=== PATIENT | male | born 1960 | race Caucasian/White ===

== ENCOUNTER 2018-01-20 08:49 | Outpatient (CLI) | payer OTHER ==
[2018-01-20 10:09] LABS: BASOPHILS # (AUTO) 0.1 X10'3 (0-0.2); BASOPHILS % (AUTO) 0.8 % (0-1); EOSINOPHILS # (AUTO) 0.7 X10'3 (0-0.9); EOSINOPHILS % (AUTO) 6.5 % (0-6); LYMPHOCYTES # (AUTO) 2.1 X10'3 (1.1-4.8); LYMPHOCYTES % (AUTO) 20.5 % (21-51); MEAN CORPUSCULAR HEMOGLOBIN 31.5 PG (27.0-31.0); MEAN CORPUSCULAR HGB CONC 34.2 % (33.0-36.5); MEAN CORPUSCULAR VOLUME 92.3 FL (78-98); MEAN PLATELET VOLUME 7.4 FL (7.4-10.4); MONOCYTES # (AUTO) 0.6 X10'3 (0-0.9); MONOCYTES % (AUTO) 5.5 % (2-12); NEUTROPHILS # (AUTO) 6.7 X10'3 (1.8-7.7); NEUTROPHILS % (AUTO) 66.7 % (42-75); PRE OP HEMATOCRIT 39.4 % (42.0-52.0); PRE OP HEMOGLOBIN 13.5 g/dL (14.0-17.9); PRE OP PLATELET COUNT 355 X10'3 (140-440); RED BLOOD COUNT 4.27 X10'6 (4.70-6.10); RED CELL DISTRIBUTION WIDTH 12.9 % (11.5-14.5)
[2018-01-20] MEDS ORDERED: AMLO10TA13 (10:23)
[2018-01-20] MEDS ORDERED: ATOR10TA70 (10:23)
[2018-01-20] MEDS ORDERED: LISI-600 (10:23)
[2018-01-20] MEDS ORDERED: METH750T3 (10:23)
[2018-01-20] MEDS ORDERED: HYDR-3972 (10:23)
[2018-01-20] MEDS ORDERED: CARI250T PO (10:23)
[2018-01-20] MEDS ORDERED: OXYC40TA48 (10:23)
[2018-01-20 10:26] LABS: ALBUMIN 4.1 G/DL (3.4-5.0); ALBUMIN/GLOBULIN RATIO 1.2 (1.1-1.5); ALKALINE PHOSPHATASE 55 IU/L (46-116); BLOOD UREA NITROGEN 16 MG/DL (7-18); BUN/CREATININE RATIO 17.2 (5.4-32.0); CALCIUM 9.3 MG/DL (8.5-10.1); CHLORIDE 103 MMOL/L (99-107); CREATININE 0.93 MG/DL (0.60-1.10); PRE OP ALT 28 U/L (30-65); PRE OP ANION GAP 7 (8-16); PRE OP AST 19 U/L (10-37); PRE OP BILIRUB, TOTAL 0.3 MG/DL (0.0-1.0); PRE OP GLUCOSE 105 MG/DL (70-104); PRE OP POTASSIUM 4.7 MMOL/L (3.4-5.1); PRE OP SODIUM 141 MMOL/L (135-145); TOTAL CARBON DIOXIDE 30.8 MMOL/L (24-32); TOTAL PROTEIN 7.5 G/DL (6.4-8.2); eGFR 83 ML/MIN
== END 2018-01-20 11:35 | disposition home or self-care (01) ==
LOC: PRE-OP 08:49 → EDSTATUS 08:50 → PRE-OP 11:35 → EDSTATUS 01-22 08:50
PROVIDERS: ATTEND Orthopaedic Surgery
DX: Z01.818 Encounter for other preprocedural examination (principal); M75.122 Complete rotator cuff tear or rupture of left shoulder, not specified as traumatic; M75.82 Other shoulder lesions, left shoulder; M25.512 Pain in left shoulder; Y93.H3 Activity, building and construction
CPT/HCPCS: 36415; 80053; 85025; 87070

== ENCOUNTER 2018-03-09 12:30 | Inpatient (IN) | payer OTHER ==
[2018-03-08 15:11] LABS: ALBUMIN 3.9 G/DL (3.4-5.0); ALBUMIN/GLOBULIN RATIO 1.1 (1.1-1.5); ALKALINE PHOSPHATASE 66 IU/L (46-116); BLOOD UREA NITROGEN 24 MG/DL (7-18); BUN/CREATININE RATIO 23.1 (5.4-32.0); CALCIUM 8.5 MG/DL (8.5-10.1); CHLORIDE 104 MMOL/L (99-107); CREATININE 1.04 MG/DL (0.60-1.10); PRE OP ALT 27 U/L (30-65); PRE OP ANION GAP 10 (8-16); PRE OP AST 21 U/L (10-37); PRE OP BILIRUB, TOTAL 0.1 MG/DL (0.0-1.0); PRE OP GLUCOSE 162 MG/DL (70-104); PRE OP SODIUM 140 MMOL/L (135-145); TOTAL PROTEIN 7.4 G/DL (6.4-8.2); eGFR 73 ML/MIN
[~2018-03-09] VITALS: Ht 175.3 cm; Wt 68.0 kg
[~2018-03-09 12:30] MED LIST: AMLO10TA13; ATOR10TA70; CARI250T PO; ESZO3TAB32 PO; HYDR-3972; IBUP-1985 PO; METH750T3; OXYC40TA48; TRAZ300T2 PO
[2018-03-11] VITALS (19 sets, daily range): BP systolic 112–178; BP diastolic 67–98
[2018-03-11] MEDS ORDERED: ringers solution, lacted 1,000 ML IV SCH ×3 (05:00→13:14)
[2018-03-11] MEDS ORDERED: tranexamic acid inj. 680 MG in normal saline 100ml IV soln 93.2 ML IV ONE ×4 (05:00)
[2018-03-11] MEDS ORDERED: ceFAZolin 2gm in dextrose, iso 100 ML IV ONE (05:00)
[2018-03-11] MEDS ORDERED: famotidine 20mg tablet PO ONE (05:30)
[2018-03-11] MEDS ORDERED: VANCOMYCIN INJ 1000 MG in NORMAL SALINE 250ml IV.SOLN IV ONE (05:30)
[2018-03-11] MEDS ORDERED: ondansetron/PF 4mg/2ml inj IV PRN ×3 (11:30→18:45)
[2018-03-11] MEDS ORDERED: morphine 4 MG/ML inj SYRINge IV PRN ×4 (11:30→13:15)
[2018-03-11] MEDS ORDERED: meperidine/PF 25mg/ml syringe IV PRN ×6 (11:30→13:15)
[2018-03-11] MEDS ORDERED: proCHLORperazine 10 MG/2 ml inj IV PRN ×2 (11:30→13:15)
[2018-03-11] MEDS ORDERED: ketorolac trometh. 30mg/ml inj. ONE (13:30)
[2018-03-11] MEDS ORDERED: vancomycin 1,000mg inj ONE (13:30)
[2018-03-11] MEDS ORDERED: ROPIVAcaine 0.5% (5mg/ml) 30ml vial ONE ×2 (13:30→15:24)
[2018-03-11 13:44] LABS: BASOPHILS % (AUTO) 0.6 % (0-1); EOSINOPHILS # (AUTO) 0.2 X10'3 (0-0.9); EOSINOPHILS % (AUTO) 2.3 % (0-6); HEMATOCRIT 37.1 % (42.0-52.0); HEMOGLOBIN 12.6 g/dl (14.0-17.9); LYMPHOCYTES # (AUTO) 2.4 X10'3 (1.1-4.8); LYMPHOCYTES % (AUTO) 31.7 % (21-51); MEAN CORPUSCULAR HEMOGLOBIN 31.6 PG (27.0-31.0); MEAN CORPUSCULAR HGB CONC 33.8 % (33.0-36.5); MEAN CORPUSCULAR VOLUME 93.3 FL (78-98); MEAN PLATELET VOLUME 7.4 FL (7.4-10.4); MONOCYTES # (AUTO) 0.5 X10'3 (0-0.9); MONOCYTES % (AUTO) 6.8 % (2-12); NEUTROPHILS # (AUTO) 4.5 X10'3 (1.8-7.7); NEUTROPHILS % (AUTO) 58.6 % (42-75); PLATELET COUNT 286 X10'3 (140-440); RED BLOOD COUNT 3.97 X10'6 (4.70-6.10); RED CELL DISTRIBUTION WIDTH 14.3 % (11.5-14.5); WHITE BLOOD COUNT 7.6 X10'3 (4.5-11.0)
[2018-03-11] MEDS: tranexamic acid inj. 680 MG in normal saline 100ml IV soln 93.2 ML IV SCH ×2 (13:50→14:50)
[2018-03-11] MEDS ORDERED: diazepam 5mg tablet PO ONE (14:20)
[2018-03-11] MEDS ORDERED: fentaNYL/PF 50MCG/1 ML 2ML syringe ONE (15:21)
[2018-03-11] MEDS ORDERED: MIDAZolam 5mg/5ml vial ONE (15:21)
[2018-03-11] MEDS ORDERED: cloNIDine hcl/PF 100mcg/ml inj ONE (15:23)
[2018-03-11] MEDS ORDERED: LIDOcaine 1%/PF 5ML 10 MG/ML VIAL ONE (15:26)
[2018-03-11] MEDS ORDERED: propofol inj 20 ML IV ONE (15:26)
[2018-03-11] MEDS ORDERED: sevoflurane 250ml liquid IH ONE (16:22)
[2018-03-11] MEDS ORDERED: dexamethasone sod phosphate 10mg/ml inj ONE (16:22)
[2018-03-11] MEDS ORDERED: ondansetron/PF 4mg/2ml inj ONE (16:22)
[2018-03-11] MEDS ORDERED: HYDROmorphone inj. 0.5 MG/0.5 ML DISP.SYRIN IV PRN ×2 (18:45)
[2018-03-11] MEDS ORDERED: CARISOPRODOL 350 MG PO PRN (18:45)
[2018-03-11] MEDS ORDERED: magnesium hydroxide 30ml (MOM) UD suspension PO PRN (18:45)
[2018-03-11] MEDS ORDERED: acetaminophen 325mg tablet PO PRN (18:45)
[2018-03-11] MEDS ORDERED: non-formulary drug (Trazodone HCl 1 TAB) PO PRN (18:45)
[2018-03-11] MEDS ORDERED: bisacodyl 10mg suppository rectal RC PRN (18:45)
[2018-03-11] MEDS ORDERED: oxyCODONE IR 5mg (immed. release) tablet PO PRN (18:45)
[2018-03-11] MEDS ORDERED: zolpidem 5mg tablet PO PRN (18:45)
[2018-03-11] MEDS ORDERED: diphenhydrAMINE 25mg capsule PO PRN ×2 (18:45)
[2018-03-11] MEDS ORDERED: traZODone 150mg tablet PO PRN (19:10)
[2018-03-11] MEDS ORDERED: vancomycin/NS 1 GM ADD-VANTAGE 250 ML IV SCH (20:00)
[2018-03-11] MEDS ORDERED: sennosides 8.6mg tablet PO SCH (21:00)
[2018-03-11] MEDS: oxyCODONE SR 40mg (sust release) tab PO SCH (21:00)
[2018-03-11] MEDS: ketorolac tromethamine 15mg/ml inj. IV SCH (21:00)
[2018-03-11] MEDS: acetaminophen 325mg tablet PO SCH (21:00)
[2018-03-11] MEDS ORDERED: METHOCARBAMOL 750 MG SCH (21:00)
[2018-03-11] MEDS: gabapentin 300mg capsule PO SCH (21:01)
[2018-03-11] MEDS: potassium cl 20mEq in 1/2 NS 1,000 ML IV SCH (21:14)
[2018-03-11] MEDS ORDERED: tranexamic acid inj. 680 MG in normal saline 100ml IV soln 100 ML IV ONE (21:45)
[2018-03-11] MEDS: ceFAZolin 1GM/D5W- ADD-VANTAGE 50 ML IV SCH (23:58)
[2018-03-12] MEDS: acetaminophen 325mg tablet PO SCH ×3 (01:41→14:19)
[2018-03-12] MEDS: ketorolac tromethamine 15mg/ml inj. IV SCH ×3 (01:42→14:19)
[2018-03-12 02:00] VITALS: BP 114/78
[2018-03-12] MEDS: potassium cl 20mEq in 1/2 NS 1,000 ML IV SCH ×2 (02:42→10:42)
[2018-03-12] MEDS: oxyCODONE IR 5mg (immed. release) tablet PO PRN ×2 (05:16→10:58)
[2018-03-12 06:57] LABS: BASOPHILS % (AUTO) 0 % (0-1); EOSINOPHILS % (AUTO) 0 % (0-6); HEMOGLOBIN 12.1 g/dl (14.0-17.9); LYMPHOCYTES % (AUTO) 5.6 % (21-51); MEAN CORPUSCULAR HEMOGLOBIN 32.8 PG (27.0-31.0); MEAN CORPUSCULAR HGB CONC 34.6 % (33.0-36.5); MEAN CORPUSCULAR VOLUME 94.8 FL (78-98); MONOCYTES # (AUTO) 0.5 X10'3 (0-0.9); MONOCYTES % (AUTO) 2.6 % (2-12); NEUTROPHILS # (AUTO) 16.4 X10'3 (1.8-7.7); NEUTROPHILS % (AUTO) 91.8 % (42-75); PLATELET COUNT 263 X10'3 (140-440); RED CELL DISTRIBUTION WIDTH 13.5 % (11.5-14.5); WHITE BLOOD COUNT 17.9 X10'3 (4.5-11.0)
[2018-03-12 07:44] LABS: ANION GAP 14 (8-16); CHLORIDE 102 MMOL/L (99-107); SODIUM 138 MMOL/L (135-145); TOTAL CARBON DIOXIDE 22.4 MMOL/L (24-32)
[2018-03-12] MEDS: ceFAZolin 1GM/D5W- ADD-VANTAGE 50 ML IV SCH (07:59)
[2018-03-12] MEDS ORDERED: amLODIPine 5mg tablet PO SCH (08:00)
[2018-03-12] MEDS ORDERED: non-formulary drug (Amlodipine Besylate 10 MG) SCH (08:00)
[2018-03-12] MEDS: gabapentin 300mg capsule PO SCH ×2 (08:03→12:57)
[2018-03-12] MEDS: oxyCODONE SR 40mg (sust release) tab PO SCH ×2 (08:04→12:58)
[2018-03-12] MEDS ORDERED: aspirin 325mg tablet PO SCH (08:30)
[2018-03-12 10:00] VITALS: BP 147/82
[2018-03-12] MEDS ORDERED: celeCOXIB 100mg capsule PO SCH (20:00)
[2018-03-13] MEDS ORDERED: acetaminophen 325mg tablet PO PRN (18:45)
== END 2018-03-12 15:13 | disposition home or self-care (01) | DRG 483 ==
LOC: PAS IN 03-11 11:49 → EDSTATUS 03-11 14:45 → ORTHO 4S 03-11 19:28
PROVIDERS: ADMIT Orthopaedic Surgery; ATTEND Orthopaedic Surgery
PROC: 3E0T3BZ Introduction of Anesthetic Agent into Peripheral Nerves and Plexi, Percutaneous Approach (ICD-10-PCS; 2018-03-11)
PROC: 0RRK00Z Replacement of Left Shoulder Joint with Reverse Ball and Socket Synthetic Substitute, Open Approach (ICD-10-PCS; principal; 2018-03-11 16:22)
DX: M19.012 Primary osteoarthritis, left shoulder (principal); D62 Acute posthemorrhagic anemia; M75.122 Complete rotator cuff tear or rupture of left shoulder, not specified as traumatic; E78.5 Hyperlipidemia, unspecified; I10 Essential (primary) hypertension; M75.82 Other shoulder lesions, left shoulder; M76.71 Peroneal tendinitis, right leg; G89.29 Other chronic pain; M54.9 Dorsalgia, unspecified; Z79.899 Other long term (current) drug therapy
CPT/HCPCS: 36415; 80051; 80053; 82948; 85025; 87070; 97110; 97116; 97161; A4565; A7000; J0690; J0735; J1100; J1885; J2001; J2250; J2405; J2704; J2795; J3010; J3370; J7030; J7040; J7120; Q0163

== ENCOUNTER 2019-08-14 15:07 | Emergency (ER) | payer OTHER | END 2019-08-14 15:38 | LOC: ER 15:07 | DX: Z02.89 Encounter for other administrative examinations (principal); Z04.1 Encounter for examination and observation following transport accident; G89.29 Other chronic pain; Z79.899 Other long term (current) drug therapy; V59.69XA Unspecified occupant of pick-up truck or van injured in collision with other motor vehicles in traffic accident, initial encounter; Y93.89 Activity, other specified; Y92.481 Parking lot as the place of occurrence of the external cause; Y99.8 Other external cause status | CPT/HCPCS: 99283 ==